=== PATIENT | female | born 1940 | race Caucasian/White ===

== ENCOUNTER 2025-08-02 10:51 | Outpatient (CLI) | payer MEDICARE, SELFPAY ==
--- OUTSIDE RECORDS SUMMARY | 2025-07-28 08:10 | XMS_ITS | Encounter Summary ---
Author Organization [facility] Address [address] [id number] Care Team Providers Care Inspector Air Carrier Name Role Phone Disha Castillo Primary Care Provider Unavailabl e Reason for Referral * Imaging (Routine) - Pending Review Specialty Diagnoses / Procedures Referred By Shaka salvador Referred To Contact Gastroenterology Diagnoses Esophageal dysphagia Severe esophageal dysplasia Procedures EGD w Halo EGD w Halo Gisel Nj APRN [address] [address] Phone: tel: fax: Referral ID Status Reason Start Date Expiration Date Visits Requested Visits Authorized [id number] Pending Review Specialty Services Required 07/28/2025 01/27/2027 1 1 * Consultation (Routine) - Authorized Specialty Diagnoses / Procedures Referred By Shaka salvador Referred To Contact Diagnoses Esophageal dysphagia Severe esophageal dysplasia Gisel Nj APRN [address] [address] Phone: tel: fax: Referral ID Status Reason Start Date Expiration Date V isits Requested Visits Authorized [id number] Authorized 07/28/2025 01/27/2027 1 1 Reason for Visit * Reason Comments Severe esophageal dysplasia * Consultation (Urgent) - Closed Specialty Diagnoses / Procedures Referred By Shaka t Referred To Contact Gastroenterology Diagnoses Severe esophageal dysplasia Spady, Sammy D, MD [address] [facility] [address] [place] [address] Phone: tel: fax: Betty Encisoj [address] [place] [address] Phone: tel: fax: Referral ID Status Reason Start Date Expiration Date V isits Requested Visits Authorized [id number] Closed Specialty Services Required 06/23/2025 12/23/2026 1 1 Encounter Details Date Type Department Care Team (Late st Contact Info) Description 07/28/2025 8:10 AM EDT Office Visit [facility] Medicine [facility] [address] [place] [address] Gisel Nj, TARGET MAN [address] [facility] [address] [place] [address] Esophageal dysphagia (Primary Dx); Severe esophageal dysplasia Social History Tobacco Use Types Packs/Day Years Used Date Smoking Tobacco: Never Passive Smoke Exposure: Never Smokeless Tobacco: Never Tobacco Cessation:Counseling Given: Not Answered Alcohol Use Standard Drinks/Week Comments No 0 (1 standard drink = 0.6 oz pur e alcohol) PHQ-2 Answer Date Recorded Patient Health Questionnaire-2 Score 0 07/28/2025 PHQ-9 Answer Date Recorded Patient Health Questionnaire-9 Score 1 07/28/2025 Comments Unknown Sex and Gender Information Value Date Recorded Sex Assigned at Not on file Legal Sex Female 7:57 PM EDT Gender Identity Not on file Sexual Orientation Not on file documented as of this encounter Last Filed Vital Signs Vital Sign Reading Time Taken Comments Blood Pressure 150/85 07/28/2025 7:42 AM EDT Pulse 64 07/28/2025 7:42 AM EDT Temperature 36.6 C (97.8 F) 07/28/2025 7:42 AM EDT Respiratory Rate 18 07/28/2025 7:42 AM EDT Oxygen Saturation 93% 07/28/2025 7:42 AM EDT Inhaled Oxygen Concentration - - Weight 67.1 kg (147 lb 14.9 oz) 07/28/2025 7:42 AM EDT Height 152.4 cm (5') 07/28/2025 7:42 AM EDT Body Mass Index 28.89 07/28/2025 7:42 AM EDT documented in this encounter Functional Status * Over the past 2 weeks, how often have you been bothered by any of the following problems? Question Answer Date of Assessment Author Little interest or pleasure in doing things Not at all 07/28/2025 7:44 AM EDT Karen Mabry Feeling down, depressed, or hopeless Not at all 07/28/2025 7:44 AM EDT Karen Mabry Patient Health Questionnaire -2 Score 0 07/28/2025 7:44 AM EDT Karen Mabry * Question Answer Date of Assessment Author Trouble falling or staying asleep, or sleeping too much Several days 07/28/2025 7:44 AM EDT Karen Mabry Feeling tired or having tanya le energy Not at all 07/28/2025 7:44 AM EDT Karen Mabry Poor appetite or overeating Not at all 07/28/2025 7: 44 AM EDT Karen Mabry Feeling bad about yourself - or that you are a failure or have let yourself or your family down Not at all 07/28/2025 7:44 AM EDT Karen Mabry Trouble concentrating on things, such as reading the newspaper or watching television Not at all 07/28/2025 7:44 AM EDT Karen Mabry Moving or speaking so slowly that other people could have noticed? Or the opposite - being so fidgety or restless that you have been moving around a lot more than usual. Not at all 07/28/2025 7:44 AM EDT Karen Mabry Thoughts that you would be better off or hurting yourself in some way Not at all 07/28/2025 7:44 AM EDT Rosa Mabry Patient Health Questionnaire -9 Score 1 07/28/2025 7:44 AM EDT Karen Mabry * How difficult have these problems made it for you to do your work, take care of things at home, or get along with other people? Answer Date of Assessment Author Not difficult at all 07/28/2025 7:44 AM EDT Karen Cruz documented as of this encounter Miscellaneous Notes * Progress Notes - Gisel Nj APRN - 07/28/2025 8:10 AM EDT Patient: Ginny Yancey Date of : 1940 Subjective: History of Presenting Illness Ms. Ginny Yancey is a 85 y.o. year old female being seen today in clinic for consultation of severe esophageal dysplasia. PMHx: CAD (on xarelto)?, TIA, HTN, GERD, HLD, cervical disc disease with radiculopathy, psoriasis Family Hx: Brother with colon cancer. No IBD. GI Hx: Hx of intermittent dysphagia to all consistencies for years. She has no hx of food bolus impaction. She underwent recent EGD with dilation to stricture up to 20mm which she states was helpful/improved but still occurs occasionally. No acid reflux or heartburn. No upper abdominal pain. No GI bleeding including hematochezia, melena, or hematemesis. No unintentional weight loss or fevers. She is on xarelto for likely cardiac reasons per pt. However also noted TIAs mentioned in notes andit appears she is no longer on plavix at this time. Her caption writer is Dr. Gregg in [place], [place] She reports she is UTD on colonoscopy via PCP management Summary of available workup: OSH CT A/P 03/2025: distal esophageal wall thickening OSH EGD 06/03/2025: benign intrinsic stricture in GEJ, dilated to 20mm successfully. Localized friability of mucosa in upper tird of esophagus. Sliding small size HH. 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 Review of Systems All systems negative except those addressed by HPI. Medical History[1] Surgical History[2] Family History[3] Social History Socioeconomic History Marital status: Spouse name: Not on file Number of children: Not on file Years of education: Not on file Highest education level: Not on file Occupational History Not on file Tobacco Use Smoking status: Never Passive exposure: Never Smokeless tobacco: Never Vaping Use Vaping status: Never Used Substance and Sexual Activity Alcohol use: No Drug use: Never Sexual activity: Not on file Other Topics Concern Not on file Social History Narrative Not on file Social Drivers of Health Financial Resource Strain: Not on file Food Insecurity: Not on file Transportation Needs: Not on file Physical Activity: Not on file Stress: Not on file Social Connections: Not on file Intimate Partner Violence: Not on file Housing Stability: Not on file Current Outpatient Medications Medication Instructions amLODIPine (NORVASC) 10 mg, Every morning aspirin 81 mg, Every morning clopidogrel (PLAVIX) 75 mg, Every morning donepezil (ARICEPT) 5 mg, Nightly erythromycin (Romycin) 5 MG/GM ophthalmic ointment Apply into lower eye lid of affected eye four times daily gabapentin (NEURONTIN) 300 mg, ZZ 3 times daily RT losartan (COZAAR) 50 mg, Every morning methocarbamol (ROBAXIN) 750 mg, Oral, 4 times daily nitroglycerin (Nitrostat) 0.4 MG SL tablet DISSOLVE ONE TABLET UNDER THE TONGUE EVERY 5 MINUTES NEEDED FOR CHEST PAIN. DO NOT EXCEED A TOTAL OF 3 DOSES IN 15 MINUTES pantoprazole (PROTONIX) 40 mg, Every morning rosuvastatin (CRESTOR) 20 mg, Every morning tolterodine LA (DETROL LA) 4 mg, Nightly Xarelto 10 mg, Daily Allergies[4] Objective: Temp: [36.6 ??C (97.8 ??F)] 36.6 ??C (97.8 ??F) Heart Rate: [64] 64 Resp: [18] 18 BP: (150)/(85) 150/85 Weight: 67.1 kg (147 lb 14.9 oz) Body mass index is 28.89 kg/m??. Physical Exam General - well nourished and developed female in no acute distress. HEENT - No scleral icterus, EOMI, atraumatic Cardiovascular - No chest pain Respiratory - respiratory rate even and non-labored Gastrointestinal - non-tender, not distended Dermatologic - No jaundice or rashes visible MSK - no deformities noted Neuro - oriented to time and place. Psychiatric - pleasant, calm, cooperative. Immunization History Administered Date(s) Administered Influenza, injectable, quadrivalent 07/27/2017 Influenza, seasonal, injectable 07/27/2009, 08/02/2010 Moderna COVID-19 Vaccine ([employer] Professor) 12+ years 12/15/2020, 01/12/2021, 10/11/2021 Pneumococcal Polysaccharide PPV23 11/10/2013 Pneumococcal, Unspecified 07/27/2014 Assessment and Plan: High grade esophageal dysplasia Dysphagia -intermittent dysphagia to all consistencies for years. She has no hx of food bolus impaction. -She underwent recent EGD with dilation to stricture up to 20mm which she states was helpful/improved but still occurs occasionally. -no unintentional weight loss or GI bleeding including melena, hematochezia, or hematemesis -Acid reflux/GERD well controlled on PPI -CT A/P 03/2025: distal esophageal wall thickening -EGD 06/03/2025: benign intrinsic stricture in GEJ, dilated to 20mm successfully. Localized friability of mucosa in upper tird of esophagus. Sliding small size HH. 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 PLAN: ---discussed with advanced endo. Will go ahead and order EGD with RFA and advanced team will reviewchart next week. ---continue pantoprazole, counseled on timing of medication ---will request our team assist with xarelto holding instructions from caption writer RECOMMENDATIONS: -Return to clinic after EGD (with Dr. Ellis or if he prefers can be with me) Gisel Nj APRN A total of 45 minutes was spent on this patient encounter - educating patient, interpreting and discussing labs and imaging, impressions, prognosis, risks/benefits of current treatment options, risk factor reduction, instructions for management, and documentation. Care coordination provided included review and summary of medical records and additional diagnostic research, phone collaboration and consult with peers. [1] Past Medical History: Diagnosis Date Acute respiratory failure with hypoxia 06/07/21 Secondary to CovidTolerating room air Elevated serum creatinine 06/05/2021 MILES - Adequate urine output - States she is unsure if she has CKD - Last creatinine at PCP was 1.10- Dr. Barrera Be PCP - 1000 ml LR bolus given 06/06 - LR at 75 ml 06/06 - Creatinine 1.28 on 06/06; decreased to 1.04 on 06/08-resolving Personal history of diseases of the skin and subcutaneous tissue History of psoriasis Personal history of other diseases of the circulatory system History of hypertension Personal history of other diseases of the digestive system History of gastroesophageal reflux (GERD) Personal history of other endocrine, nutritional and metabolic disease History of diabetes mellitus Personal history of other infectious and parasitic diseases History of measles Personal history of other infectious and parasitic diseases History of mumps Personal history of peptic ulcer disease History of gastric ulcer [2] Past Surgical History: Procedure Laterality Date APPENDECTOMY N/A Appendectomy from [facility] CATH STENT PLACEMENT/ CATH PLACEMENT OF STENT N/A Cath Stent Placement from [facility] CHOLECYSTECTOMY N/A Cholecystotomy from [facility] HYSTERECTOMY N/A Hysterectomy from [facility] [3] Family History Problem Relation Name Age of Onset Cardiac disorder Other Other cancer Other [4] No Known Allergies documented in this encounter Plan of Treatment Scheduled Orders Name Type Priority Associated Diagnoses Orde r Schedule EGD w Halo Endoscopy Routine Esophageal dysphagia Severe esophageal dysplasia Expected: 07/28/2025, Expires: 01/29/2027 Scheduled Referrals Name Type Priority Associated Diagnoses Orde r Schedule Follow Up GI Outpatient Referral Routine Esophageal dysphagia Severe esophageal dysplasia 1 Occurrences starting 07/28/2025 until 08/28/2026 documented as of this encounter Visit Diagnoses Diagnosis Esophageal dysphagia- Primary Dysphagia, pharyngoesophageal phase Severe esophageal dysplasia documented in this encounter Additional Health Concerns Infection Onset Date Last Indicated Resolved Time MRSA 06/12/2021 06/12/2021 Assessment Noted Time PHQ-9 Depression Total Score: 1 07/28/20 25 7:44 AM EDT A fall risk assessment has been complete d for the patient 07/28/2025 7:45 AM EDT A Body Mass Index follow-up plan has been documented for the patient 07/28/2025 8:55 AM EDT documented as of this encounter Care Teams Inspector Air Carrier Relationship Specialty Start Date [place] - General 06/04/21 documented as of this encounter
--- OUTSIDE RECORDS SUMMARY | 2025-08-02 10:55 | XMS_ITS | Encounter Summary ---
Author Organization Healthcare Address [address] [place] [address] Care Team Providers Care Check Processor Name Role Phone ShawnDisha monet Primary Care Provider Unavailabl e Encounter Details Date Type Department Care Team (Latest Contact Info) Description 07/28/2025 Travel Social History Tobacco Use Types Packs/Day Years Used Date Smoking Tobacco: Never Passive Smoke Exposure: Never Smokeless Tobacco: Never Alcohol Use Standard Drinks/Week Comments No 0 [...] on file documented as of this encounter Functional Status * Over the [...] Karen Cruz documented as of this encounter Plan of Treatment Not on file documented as of this encounter Visit Diagnoses Not on filedocumented in this encounter Additional Health Concerns Infection [...] documented as of this encounter Care Teams Check Processor Relationship Specialty Start Date End Date Disha Castillo [place], [place] PCP - General 06/04/21 documented as of this encounter
--- OUTSIDE RECORDS SUMMARY | 2025-08-02 10:55 | XMS_ITS | Clinical Summary ---
Author Organization [facility] Address [address] [place] [address] Care Team Providers Care Manager Meeting Name Role Phone Disha Castillo Primary Care Provider Unavailabl e Allergies No known active allergies Medications amLODIPine (Norvasc) 10 MG tablet Take 10 mg by mouth 1 (one) time each day in the morning. 1 Active clopidogrel (Plavix) 75 MG tablet Take 75 mg by mouth 1 (one) time each day in the morning. 1 Active donepezil (Aricept) 5 MG tablet Take 5 mg by mouth every night. 1 Active erythromycin (Romycin) 5 MG/GM ophthalmic ointment Apply into lower eye lid of affected eye four times daily 1 Active gabapentin (Neurontin) 300 MG capsule Take 300 mg by mouth 3 (three) times a day. 1 Active losartan (Cozaar) 50 MG tablet Take 50 mg by mouth 1 (one) time each day in the morning. 1 Active nitroglycerin (Nitrostat) 0.4 MG SL tablet DISSOLVE ONE TABLET UNDER THE TONGUE EVERY 5 MINUTES NEEDED FOR CHEST PAIN. DO NOT EXCEED A TOTAL OF 3 DOSES IN 15 MINUTES 1 Active pantoprazole (ProtoNix) 40 MG EC tablet Take 40 mg by mouth 1 (one) time each day in the morning. 1 Active rosuvastatin (Crestor) 20 MG tablet Take 20 mg by mouth 1 (one) time each day in the morning. 1 Active tolterodine LA (Detrol LA) 4 MG 24 hr capsule Take 4 mg by mouth every night. Active aspirin 81 MG EC tablet Take 81 mg by mouth 1 (one) time each day in the morning. Active methocarbamol (Robaxin) 750 MG tablet Take 1 tablet (750 mg total) by mouth 4 (four) times a day for 10 days. 40 tablet Active Additional Information Patient not taking.Reported on 07/28/2025 Xarelto 10 MG tablet Take 1 tablet by mouth daily. 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 2021 Overview (2021): Encourage nutrition Supplemental nutrition as needed HTN (hypertension) 06/07/2021 Overview (06/07/2021): Resume home medications Dementia 06/07/2021 Overview (06/07/2021): Resume home medications Hypocalcemia 06/05/2021 Overview (06/07/2021): Regular diet Encourage nutrition Cyst of right ovary 06/05/2021 Overview (06/07/2021): Incidental finding Informed patient 06/05 Follow up with MACHINE [employer] REPLACER CAD (coronary artery disease) 06/05/2021 Overview (06/07/2021): Restart home meds as appropriate Hiatal hernia 06/05/2021 Overview (06/07/2021): Informed patient 06/05 No clinical symtpoms Follow up with blue as needed T12 compression fracture 06/05/2021 Overview (06/07/2021): Ortho consult - NTD - PT/OT Obesity 06/05/2021 Overview (06/07/2021): Could complicate care Anemia 06/04/2021 Overview (06/07/2021): - Likely due to trauma - H&H stable - HDS Closed fracture of body of sternum 06/04/2021 Overview (06/07/2021): Ekg stable- normal sinus Resolved Problems Problem Noted Date Diagnosed Date Resolved Date Acute respiratory failure with hypoxia 06/07/2021 07/17/2025 Overview (06/10/2021): Secondary to Covid Tolerating room air Elevated serum creatinine 06/05/2021 Overview (06/09/2021): MILES - Adequate urine output - States she is unsure if she has CKD - Last creatinine at PCP was 1.10 - Dr. Barrera Be PCP - 1000 ml LR bolus given 06/06 - LR at 75 ml 06/06 - Creatinine 1.28 on 06/06; decreased to 1.04 on 06/08-resolving COVID-19 06/05/2021 07/17/2025 Overview (06/12/2021): - Covid positive 06/05 (isolation until 06/25 per IPAC) per health department 10- 14 days (06/15) - Remedesivir started 06/05 - Decadron 6 mg (06/05) daily for 10 days - High flow nasal cannula 30 L and 60% 06/06; 6L NC on 06/07 - PEP/PAP - Mobility and IS - Tolerating room air Encounters Date Type Department Care Team Description 07/28/2025 8:10 AM EDT Office Visit [facility] Medicine Specialties [address] [place] [address] Gisel Nj, ZUMBA INSTRUCTOR Esophageal dysphagia (Primary Dx); Severe esophageal dysplasia 07/28/2025 Telephone [facility] Medicine Specialties [address] [place] [address] Oneyda Campbell, RN ACS - Patient Communication (Returning DIL's Call ) 07/28/2025 Travel from Last 3 Months Immunizations Immunization Administration Dates Next Due Influenza, injectable, quadrivalent 07/27/2017 Influenza, seasonal, injectable 08/02/2010,07/27 Moderna COVID-19 Vaccine ([employer]) 12+ years ,12/15/2020 Pneumococcal Polysaccharide PPV23 11/10/2013 Pneumococcal, Unspecified 07/27/2014 Family History Medical History Relation Name Comments Cardiac disorder Other 1 Other cancer Other 2 Relation Name Status Comments Other 1 Other 2 Social History Tobacco Use Types Packs/Day Years [...] on file Sexual Orientation Not on file Last Filed Vital Signs Vital Sign Reading [...] Mass Index 28.89 07/28/2025 7:42 AM EDT Plan of Treatment Health Maintenance Due Date Last Done Comments [facility]-Bone Density Scan 1940 [facility]-/Child/Adol SDOH Screenings 1940 [facility]- SDOH Screenings 1958 [facility]-Adult SDOH Screenings 1958 [facility]-DTaP,Tdap,and Td Vaccines (1 - Tdap) 1959 [facility]-Zoster Vaccines (1 of 2) 1990 [facility]-RSV Vaccine: 60+ Years or (1 - 1-dose 75+ series) 2015 [id number] Vaccine (4 - 2024- season) 2025 10/11/2021, 01/12/2021, 12/15/2020 [facility]-Influenza Vaccine (#1) 06/27/202509/08, 07/27/2017, 08/02/2010, Additional history exists [facility]-Medicare Annual Wellness (AWV) 01/21/2026 01/21/2025, 08/12/2022 [facility]-Depression Screening 07/28/2026 07/28/2025, 11/2024 [facility]-Pneumococcal Vaccine: 50+ Years Completed 01/21/2025, 07/27/2014, 11/10/2013 [facility]-Obesity Intervention Completed 07/28/2025 HPV Vaccines Aged Out No longer eligi ble based on patient's age to complete this topic [facility]-HIB Vaccines Aged Out No longer e ligible based on patient's age to complete this topic [facility]-Hepatitis A Vaccines Aged Out No longer eligible based on patient's age to complete this topic [facility]-IPV Vaccines Aged Out No longer e ligible based on patient's age to complete this topic [facility]-Rotavirus Vaccines Aged Out No lo nger eligible based on patient's age to complete this topic Additional Health Concerns Infection Onset Date Last Indicated MRSA 06/12/2021 06/12/[address] [facility] ANTHEM MEDICARE Advance Directives * Full Code (Latest Code Status on File) Date Activated Date Inactivated Comments 06/04/2021 11:58 PM 06/14/2021 6:07 PM Question Answer Comments Patient has decision-making capacity? Yes Care Teams Manager Meeting Relationship Specialty Start Date End Date Disha Castillo [place], [place] PCP - General 06/04/21
--- OUTSIDE RECORDS SUMMARY | 2025-08-02 10:55 | XMS_ITS | Encounter Summary ---
Author Organization Healthcare Address [address] [place] [address] Care Team Providers Care Gear Setter Name Role Phone ShawnDisha monet Primary Care Provider Unavailabl e Encounter Details Date Type Department Care Team (Late st Contact Info) Description 06/12/2021 Lab Requisition [facility] [address] [place] [address] Luanne Regalado MD [address] [place], [place] [id number] Encounter for general adult medical examination without abnormal findings Social History Tobacco Use Types Packs/Day Years Used Date Smoking Tobacco: Never Alcohol Use Standard Drinks/Week Comments No 0 (1 standard drink = 0.6 oz pur e alcohol) Comments Unknown Sex and Gender Information Value Date Recorded Sex Assigned at Not on file Legal Sex Female 7:57 PM EDT Gender Identity Not on file Sexual Orientation Not on file COVID-19 Exposure Response Date Recorded In the last month, have you been in contact with someone who was confirmed or suspected to have Coronavirus / COVID-19? No / Unsure 06/04/2021 4:53 PM EDT documented as of this encounter Functional Status * Calculated C-SSRS Risk Score (Lifetime/Recent) Answer Date of Assessment Author No Risk Indicated 06/12/2021 8:55 PM EDT Estelita Saucedo RN * Question Answer Date of Assessment Author 1. Wish to be (Past 1 Month) No 021 8:55 PM EDT Estelita Deleon, RN 2. Non-Specific Active Suici andrew Thoughts (Past 1 Month) No 06/12/2021 8:55 PM EDT Diamond Deleon, RN 6. Suicidal Behavior (Lifetime) No 8:55 PM EDT Estelita Deleon, RN documented as of this encounter Plan of Treatment Not on file documented as of this encounter Procedures Procedure Name Priority Date/Time Associated Diagnosis Comments MULTI DRUG RESISTANCE TEST Routine 06/12/2021 1:20 PM EDT Encounter for general adult medical examination without abnormal findings documented in this encounter Results * (ABNORMAL) Multi Drug Resistance Test (06/12/2021 1:20 PM EDT) Culture Methicillin-Resis tant Staphylococcus aureus(AA) 06/14/2021 2:36 PM EDT [facility] Comment: The organism value for this result has been updated. These results have been appended to the previously preliminary verified report. <null> has been updated to reportable. Swab (Nares and Mariana Rectal) 06/12/2021 1:20 PM EDT 06/12/2021 2:13 PM EDT us Luanne Abdul MD LAB MICROBIOLOGY - GENERAL ORDERABLES Final Result [facility] [address] [place] [id number] documented in this encounter Visit Diagnoses Diagnosis Encounter for general adult medical examination without abnormal findings documented in this encounter Additional Health Concerns Infection Onset Date Last Indicated Resolved Time COVID 19 (Confirmed) 06/05/2021 06/05/2021 021 5:23 AM EDT MRSA 06/12/2021 06/12/2021 documented as of this encounter Care Teams Gear Setter Relationship Specialty Start Date End Date Disha Castillo [place], [place] PCP - General 06/04/21 documented as of this encounter
--- OUTSIDE RECORDS SUMMARY | 2025-08-02 10:55 | XMS_ITS | Encounter Summary ---
Author Organization [facility] Address [address] [place] [address] Care Team Providers Care Painter Ordnance Name Role Phone ShawnDisha monet Primary Care Provider Unavailabl e Reason for Visit * Reason Onset Date Comments ACS - Patient Communication 07/28/2025 Retu rning DIL's Call Encounter Details Date Type Department Care Team (Late st Contact Info) Description 07/28/2025 Telephone [facility] [address] [place] [address] Oneyda Campbell, [facility] ACS - Patient Communication (Returning DIL's Call ) Social History Tobacco Use Types Packs/Day Years [...] at all 07/28/2025 7: 44 AM EDT Kaern Mabry Feeling bad about yourself - or [...] as of this encounter Miscellaneous Notes * Telephone Encounter - Oneyda Campbell RN - 08/01/2025 8:56 AM EDT I called and left ms for Oneyda Alberts to ask if pt is already scheduled outside for a Barium Swallow. This was Gisel's reply back on initial call. If it has been ordered it would not hurt to have more information If Scheduled we just need to know date and time to pass onto Gisel * Telephone Encounter - Cheyenne Vivas - 07/28/2025 10:24 AM EDT Received call from patient's DIL Wanted to know if patient needed to complete barrium swallow since she is having the EGD w Halo CB: [phone] * Telephone Encounter - Oneyda Campbell RN - 07/28/2025 9:52 AM EDT I attempted to google the spelling of the pt's Technology Assistant and could not find. I called and spoke with the Office Machine Repair Shop Supervisor who gave me correct spelling of provider. Dr. Whittaker he's from [place], but has clinic in [place] a couple of days per week. She gave me Spec Clinic # and the Dr's Office number. I called the [facility] no answer. Called Dr. Whittaker's [place] Office spoke with Pily. I told her what we were needing on pt from provider. Pt was seen in May. We would need to send to office a note to let Dr. Whittaker know we need cardiac clearance on pt and if can stop Xeralto for 2 days prior. She gave me fax # to [phone]. I will fax. * Telephone Encounter - Oneyda Campbell RN - 07/28/2025 9:50 AM EDT ----- Message from Gisel Nj APRN sent at 07/28/2025 8:43 AM EDT ----- Regarding: Xarelto Hi. Can we get cardiac clearance and xarelto holding instructions for this pt from her basic combatant swimmer. Dr. Gregg in [place], [place]. Setphanie Jones documented in this encounter Plan of Treatment Not on [...] documented as of this encounter Care Teams Painter Ordnance Relationship Specialty Start Date End Date Disha Castillo [place], [place] PCP - General 06/04/21 documented as of this encounter
--- NOTE | 2025-08-02 10:57 | FL_ITS ---
FINAL REPORT CLINICAL HISTORY: DYSPHAGIA Cine images not obtained. error on lidia machine. FT 3:29 18.40 mGy FINDINGS: Modified barium swallow FINDINGS: Fluoroscopy was provided for the speech pathologist to evaluate the swallowing mechanism. The patient was given several different consistencies of barium while the swallow was visualized fluoroscopically. The report of the speech pathologist should be consulted prior to making dietary decisions. IMPRESSION: Modified barium swallow under fluoroscopic guidance. Please see speech pathologist's report for further details and dietary recommendations. Air, kerma dose:18.40 mGy Authenticated and ERN
--- OUTSIDE RECORDS SUMMARY | 2025-08-02 11:55 | XMS_ITS | CCD ---
Author Organization Unknown Care Team Providers Care Compensation And Hris Analyst Name Role Phone Unavailable Primary Care Provider Unavailabl e Unavailable Chronic Care Management Unavaila ble Summary Purpose DataExchange Insurance Providers Payer name Policy type / Coverage type Covered democrat ID Effective Begin Date Effective End Date [facility] [id number] Unknown Unknown Family History Family History data not found Medication Administered No Medication Administered data Reason For Visit No Reason For Visit data Medical Equipment No Medical Equipment data Advance Directives No Advance Directive data
--- NOTE | 2025-08-02 15:40 | HMH.SLMBS2 ---
Speech & Language Evaluation Speech/Lang Modified Barium Swallow Start: 08/02/25 11:47 Freq: once Status: Complete Protocol: Document 08/02/25 11:47 MARION (Rec: 08/02/25 15:40 MARION [id number]) SHIPPING CLERK CRATING Evaluation Information SHIPPING CLERK CRATING Evaluation Information Date of Evaluation: 08/02/25 Time of Evaluation: 11:00 Evaluation Type Initial Certification Reason for Referral dysphagia per MD order Does Patient Qualify No for Service Qualify/Failure Based on clinical observations made throughout MBSS, Comment mastication/manipulation of bolus and swallowing are WFL given age and adherence to recommendations given by SHIPPING CLERK CRATING. No further skilled speech therapy services are warranted at this time. MBS Recommendations Diet Dietary Regular,Thin Liquids Recommendations SL Swallow Alt bite w/sip thru meal,Standard Aspiration Prec. Guidelines Swallow Guide-Place on Either side of Mouth Food Treatment/Strategies Strategy/Precaution Sitting Upright (90 deg),No Straw,Small Bites and Sips, Recommended Alternate Liquids/Solids SHIPPING CLERK CRATING Patient History Section SHIPPING CLERK CRATING Patient History Primary Medical Pt is an 85 year old female presenting [facility] for MBSS History following reports of globus sensation during meals. 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 Does Patient have Yes Reflux or GERD? Does Patient Yes Experience Coughing or Choking Episodes? Coughing or Choking when drinking with straws Comment Does Patient Avoid No Certain Food Textures/ Consistencies? Does Patient Utilize No Compensatory Strategies During Meals? Has Patient No Experienced Significant Weight Loss? Does Pt have Hx of No Recurrent Pneumonias or Respiratory Infections? Has Patient Noticed No Change in Vocal Quality? SHIPPING CLERK CRATING Interview/Questionnaires Patient Interview and Questionnaires Questionnaires None given at this time Comment Mod Barium Swallow Study Patient Orientation Patient Orientation Person,Place,Time,Situation Oral Expression No Impairment Ability Ability to Follow Excellent Directions Is Patient able to Yes Perform Volitional Throat Clear? Is Patient able to Yes Perform Volitional Cough? Is Patient able to Yes Manage Secretions Independently? Mod Barium Swallow Set Up Radiologist Thierry Gallegos Patient Presentation Awake,Alert,Appropriate,Follows Commands : Bolus Consistencies Thin Liquids,Pudding,Puree,Mechanical Soft,Regular,Pill Trialed: (Barium Tablet) MBSS Observations Consistency & Strategy Trial Regular Penetration/ 2 Aspiration Scale PAS Amount Trace Pharyngeal Residual 10-49% Regular Half Bolus Penetration/ 1 Aspiration Scale PAS Amount Trace Pharyngeal Residual 0-9% Mechanical Soft Penetration/ 2 Aspiration Scale PAS Amount Trace Pharyngeal Residual 10-49% Mechanical Soft Half Bolus Penetration/ 1 Aspiration Scale PAS Amount Trace Pharyngeal Residual 0-9% Puree Full Spoon Penetration/ 1 Aspiration Scale PAS Amount Neither Pharyngeal Residual 0-9% Puree Half Spoon Penetration/ 1 Aspiration Scale PAS Amount Neither Pharyngeal Residual 0-9% Pudding Full Spoon Penetration/ 1 Aspiration Scale PAS Amount Neither Pharyngeal Residual 0-9% Pudding Half Spoon Penetration/ 1 Aspiration Scale PAS Amount Neither Pharyngeal Residual 0-9% Thin Straw Sip Penetration/ 3 Aspiration Scale PAS Amount Trace Pharyngeal Residual 0-9% Thin Subsequent Sips from Cup Penetration/ 1 Aspiration Scale PAS Amount Neither Pharyngeal Residual 0-9% Thin Open Cup Sip Penetration/ 1 Aspiration Scale PAS Amount Neither Pharyngeal Residual 0-9% Mod Barium Swallow Impressions Oral Phase Summary & Impressions Oral Phase: Minimal Impairment Impression Oral Phase: Labial No Impairment (WFL) Closure Oral Phase: Bolus No Impairment (WFL) Formation Pooling L/ R Oral Phase: Bolus Minimal Impairment Formation Scattered Loss Oral Phase: No Impairment (WFL) Mastication Rotary Chew Oral Phase: Minimal Impairment Mastication Munching Oral Phase: Minimal Impairment Mastication Lateralization Oral Phase: Lingual No Impairment (WFL) Movement Oral Phase: Residue Minimal Impairment Clearing Oral Phase: Other Adequate mastication/manipulation of bolus given Observations dentures ill fitting Oral Phase: Summary No concerns with oral phase. Pharyngeal Phase Summary & Impressions Pharyngeal Phase: Mild Impairment Impression Pharyngeal Phase: A/ Mild Impairment P Lingual Propulsion Spills Pharyngeal Phase: Mild Impairment Swallow Response Delay Pharyngeal Phase: No Impairment (WFL) Base of Tongue Pharyngeal Phase: Minimal Impairment Epiglottic Coverage Pharyngeal Phase: Minimal Impairment Laryngeal Elevation Pharyngeal Phase: Minimal Impairment Vallecular Retention Clearing Pharyngeal Phase: No Impairment (WFL) Pharyngeal Wall Residue Clearing Pharyngeal Phase: Minimal Impairment Piriform Sinus Retention Pharyngeal Phase: Residual observed with straw sip but cleared with Other Observations double swallow. No aspiration/penetration noted. Pharyngeal Phase: No concerns for pharyngeal phase, recommend continuing Summary f/u with GI for globus sensation concerns Aspiration Aspiration? No Silent Aspiration? No SHIPPING CLERK CRATING MBSS Goals MBS Mcc Goals Patient will utilize No Straws,Alternate Bites & Sips,Sitting Upright,Small compensatory Bites & Sips strategies with PO intake in order to meet nutrition and hydration needs for daily meals without overt signs/symptoms of aspiration. Education Instructions Discussed results of MBSS and educated on aspiration provided precautions to POA and pt both of which expressed understanding. PHYSICIAN CERTIFICATION: I certify the specified therapy services for [place] Mers are required, authorized, and reviewed every 30 days.
== END 2025-08-02 23:59 | disposition home or self-care (01) ==
LOC: RAD 10:54
PROVIDERS: PCP Nurse Practitioner Family; Visit Provider Specialist
DX: R13.10 Dysphagia, unspecified (principal)
CPT/HCPCS: 74230; 92611